=== PATIENT | male | born 1925 | race Hispanic/Latino ===

== ENCOUNTER 2017-01-04 09:20 | Emergency (ER) | payer MEDICARE ==
[2017-01-04 10:23] LABS: Basophils % (Auto) 0.6 % (0.0-1.8); Eosinophils % (Auto) 0.7 % (0.0-4.3); Hematocrit 44.9 % (35.5-45.6); Hemoglobin 14.7 gm/dl (11.8-15.2); Mean Corpuscular HGB Conc 33 % (32-34); Mean Corpuscular Hemoglobin 31 pg (28-32); Mean Corpuscular Volume 94 fl (84-94); Platelet Count 209 K/mm3 (140-440); Red Blood Count 4.78 M/mm3 (3.65-5.03); Red Cell Distribution Width 15.1 % (13.2-15.2); White Blood Count 7.9 K/mm3 (4.5-11.0)
--- NOTE | 2017-01-04 10:26 | Emergency Department Report ---
ED General Adult HPI - General Chief complaint: High BP Stated complaint: BP HIGH Time Seen by Provider: 01/04/17 10:14 Source: patient, RN notes reviewed, old records reviewed Mode of arrival: Ambulatory Limitations: No Limitations - History of Present Illness Initial comments: This is an 89-year-old male. He is previously unknown to me. Past medical history includes hypertension, GERD, A. fib, cardiac disease, hypertension. Primary care Dr.: Dr Katie Mattson Cardiology: DR Valdes the patient presents to the ER with complaint of resolved hypertension. He reports his blood pressure yesterday was 200/114. He denies dietary indiscretions. He denies caffeinated intake. He denies chest pain and shortness of breath. He denies ataxia. He denies headache and neck pain. The patient reports very transient sensation of dizziness, which he described as a sensation of feeling woozy, which initiated when he got up from standing. This lasted for a few seconds, has since resolved, and the patient reports it's always present when he gets up from standing. He has no complaints at this time , reports medication compliance, and denies missing doses of medications. -: Gradual Severity scale (0 -10): 0 Consistency: now resolved Improves with: none Worsens with: none Associated Symptoms: denies: confusion, chest pain, cough, diaphoresis, fever/ chills, headaches, loss of appetite, malaise, nausea/vomiting, rash, shortness of breath, syncope, weakness - Related Data Home Medications Medication Instructions Recorded Confirmed Last Taken Prednisone 5 mg PO QAM 01/04/17 01/04/17 Unknown Prednisone 7.5 mg PO [facility] 01/04/17 01/04/17 Unknown Prednisone 10 mg PO QAM 01/04/17 01/04/17 Unknown Prednisone 15 mg PO QAM 01/04/17 01/04/17 Unknown Warfarin [Coumadin] 7.5 mg PO QWEEK 01/04/17 01/04/17 12/29/16 Previous Rx's Medication Instructions Recorded Last Taken Type Amiodarone [Cordarone 200 MG TAB] 200 mg PO DAILY #30 tablet 11/05/15 Unknown Rx Glimepiride [Amaryl] 2 mg PO DAILY #30 tablet 11/05/15 Unknown Rx ISOSORBIDE MONOnitrate [Imdur ER] 30 mg PO DAILY #30 tablet 11/05/15 Unknown Rx Levothyroxine [Synthroid] 100 mcg PO QAM #30 tablet 11/05/15 Unknown Rx Losartan [Cozaar] 100 mg PO QDAY #30 tablet 11/05/15 Unknown Rx Warfarin [Coumadin] 5 mg PO DAILY@1700 #30 tablet 11/05/15 Unknown Rx Allergies Allergy/AdvReac Type Severity Reaction Status Date / Time Tetanus Vaccines & Toxoid Allergy Hives Verified 01/04/17 09:46 ED Review of Systems ROS: Stated complaint: BP HIGH Other details as noted in HPI Constitutional: denies: malaise Eyes: denies: vision change ENT: denies: epistaxis Respiratory: denies: cough Cardiovascular: denies: chest pain Gastrointestinal: denies: nausea, vomiting Genitourinary: denies: dysuria Musculoskeletal: denies: back pain Skin: denies: lesions Neurological: denies: headache Psychiatric: denies: depression ED Past Medical Hx - Past Medical History Hx Hypertension: Yes Hx Heart Attack/AMI: Yes Hx Congestive Heart Failure: No Hx Diabetes: Yes Hx GERD: Yes Hx Liver Disease: No (cholelithiasis) Additional medical history: Tachyarrhythmia. HIGH CHOLESTEROL. CHOLELIATHIASIS. CAD - Surgical History Hx Coronary Stent: Yes (3 STENTS) Hx Cholecystectomy: Yes Hx Appendectomy: Yes Additional Surgical History: hernia repair - Social History Smoking Status: Never Smoker Substance Use Type: None - Medications Home Medications: Home Medications Medication Instructions Recorded Confirmed Last Taken Type Amiodarone [Cordarone 200 MG TAB] 200 mg PO DAILY #30 tablet 11/05/15 01/04/17 Unknown Rx Glimepiride [Amaryl] 2 mg PO DAILY #30 tablet 11/05/15 01/04/17 Unknown Rx ISOSORBIDE MONOnitrate [Imdur ER] 30 mg PO DAILY #30 tablet 11/05/15 01/04/17 Unknown Rx Levothyroxine [Synthroid] 100 mcg PO QAM #30 tablet 11/05/15 01/04/17 Unknown Rx Losartan [Cozaar] 100 mg PO QDAY #30 tablet 11/05/15 01/04/17 Unknown Rx Warfarin [Coumadin] 5 mg PO DAILY@1700 #30 tablet 11/05/15 01/04/17 Unknown Rx Prednisone 5 mg PO QAM 01/04/17 01/04/17 Unknown History Prednisone 7.5 mg PO QAM 01/04/17 01/04/17 Unknown History Prednisone 10 mg PO QAM 01/04/17 01/04/17 Unknown History Prednisone 15 mg PO QAM 01/04/17 01/04/17 Unknown History Warfarin [Coumadin] 7.5 mg PO QWEEK 01/04/17 01/04/17 12/29/16 History ED Physical Exam - General Limitations: No Limitations General appearance: alert, in no apparent distress - Head Head exam: Present: atraumatic, normocephalic - Eye Eye exam: Present: normal appearance, EOMI. Absent: nystagmus - ENT ENT exam: Present: normal exam, normal orophraynx, mucous membranes moist, normal external ear exam - Neck Neck exam: Present: normal inspection, full ROM. Absent: tenderness, meningismus - Respiratory Respiratory exam: Present: normal lung sounds bilaterally. Absent: respiratory distress, wheezes, rales, rhonchi, stridor, chest wall tenderness, accessory muscle use, decreased breath sounds - Cardiovascular Cardiovascular Exam: Present: regular rate, normal rhythm, normal heart sounds. Absent: bradycardia, tachycardia, irregular rhythm, systolic murmur, diastolic murmur, rubs, gallop - GI/Abdominal GI/Abdominal exam: Present: soft, normal bowel sounds. Absent: distended, tenderness, guarding, rebound, rigid, pulsatile mass - Rectal Rectal exam: Present: deferred - Extremities Exam Extremities exam: Present: normal inspection, full ROM, normal capillary refill , pedal edema (1+ edema, chronic). Absent: tenderness, calf tenderness - Back Exam Back exam: Present: normal inspection, full ROM. Absent: tenderness, CVA tenderness (R), CVA tenderness (L), muscle spasm, paraspinal tenderness, vertebral tenderness - Neurological Exam Neurological exam: Present: alert, oriented X3, normal gait (no past pointing. Normal [id number]. Negative pronator drift. He walks with a steady gait.), other (Extraocular movements intact. Tongue midline. No facial droop. Facial sensation intact to light touch in the V1, V2, V3 distribution bilaterally. 5 and 5 strength in 4 extremities.. Sensation is intact to light touch in 4 extremities.). Absent: motor sensory deficit - Psychiatric Psychiatric exam: Present: normal affect, normal mood - Skin Skin exam: Present: warm, dry, intact, normal color. Absent: rash ED Course Vital Signs 01/04/17 01/04/17 01/04/17 09:35 10:10 13:16 Temperature 98.0 F 97.7 F 97.6 F Pulse Rate 85 77 77 Respiratory 17 16 16 Rate Blood Pressure 158/106 Blood Pressure 152/94 162/95 [Left] O2 Sat by Pulse 95 100 100 Oximetry - Reevaluation(s) Reevaluation #1: 01/04/17 12:15 Differential diagnosis: Hypertension, anxiety, Gen. medical evaluation, intracranial hemorrhage Assessment and plan: 89-year-old male with a complaint of painless hypertension , which has essentially resolved. He also endorses very transient dizziness, which has since resolved. He has no pulmonary embolus or DVT risk factors, he is low risk by well's criteria, his INR is therapeutic. He has a GCS of 15, with an NIH score of 0, and walks with a steady gait. I think intracranial injury is very unlikely, but given his extremely advanced age, I will obtain a noncontrast CT scan of the brain to exclude intracranial hemorrhage. He has no chest pain or shortness of breath, and his EKG demonstrates a chronically known right bundle branch block. Assuming normal CT scan of the brain, patient will be discharged with instructions to follow up with his outpatient director of sales later on this week for his INR checked. He reports that he is going to follow up with his director of sales later on this week for an INR check Reevaluation #2: 01/04/17 13:22 CT scan negative. Patient resting comfortably. Repeat neurologic examination unremarkable. Blood pressure within acceptable parameters. Patient to be discharged. ED Medical Decision Making - Lab Data Result diagrams: 01/04/17 09:56 01/04/17 09:56 Vital Signs 01/04/17 01/04/17 09:35 10:10 Temperature 98.0 F 97.7 F Pulse Rate 85 77 Respiratory 17 16 Rate Blood Pressure 158/106 Blood Pressure 152/94 [Left] O2 Sat by Pulse 95 100 Oximetry Lab Results 01/04/17 01/04/17 01/04/17 Range/Units 09:56 09:56 09:56 WBC 7.9 (4.5-11.0) K/mm3 RBC 4.78 (3.65-5.03) M/mm3 Hgb 14.7 (11.8-15.2) gm/dl Hct 44.9 (35.5-45.6) % MCV 94 (84-94) fl MCH 31 (28-32) pg MCHC 33 (32-34) % RDW 15.1 (13.2-15.2) % Plt Count 209 (140-440) K/mm3 Lymph % (Auto) 19.6 (13.4-35.0) % [place] % (Auto) 8.5 H (0.0-7.3) % Eos % (Auto) 0.7 (0.0-4.3) % Baso % (Auto) 0.6 (0.0-1.8) % Lymph # 1.6 (1.2-5.4) K/mm3 [place] # 0.7 (0.0-0.8) K/mm3 Eos # 0.1 (0.0-0.4) K/mm3 Baso # 0.0 (0.0-0.1) K/mm3 Seg Neutrophils % 70.6 H (40.0-70.0) % Seg Neutrophils # 5.6 (1.8-7.7) K/mm3 PT 25.3 H (12.2-14.9) Sec. INR 2.29 H (0.87-1.13) APTT 30.1 (24.2-36.6) Sec. Sodium 138 (137-145) mmol/L Potassium 4.2 (3.6-5.0) mmol/L Chloride 101.9 (98-107) mmol/L Carbon Dioxide 23 (22-30) mmol/L Anion Gap 17 mmol/L BUN 18 (9-20) mg/dL Creatinine 1.4 (0.8-1.5) mg/dL Estimated GFR 48 ml/min BUN/Creatinine Ratio 12.85 % Glucose 199 H (75-100) mg/dL Calcium 9.6 (8.4-10.2) mg/dL Troponin T (0.00-0.029) ng/mL - EKG Data -: EKG Interpreted by Hi EKG shows normal: sinus rhythm Rate: normal - EKG Data Interpretation: unchanged when compared t 01/04/17 12:17 normal sinus, 83 beats per minute, QTC 509 ms, normal axis, right bundle branch block, not consistent with STEMI, right bundle branch block is old when compared to prior EKG. - Radiology Data Radiology results: report reviewed, image reviewed Noncontrast CT scan of the brain demonstrates no acute disease or pathology Critical care attestation.: If time is entered above; I have spent that time in minutes in the direct care of this critically ill patient, excluding procedure time. ED Disposition Clinical Impression: HTN (hypertension) Disposition: DISCHARGED TO HOME OR SELFCARE Is pt being admited?: No Does the pt Need Aspirin: No Condition: Stable Instructions: Hypertension (ED) Additional Instructions: Continue current outpatient medications. Follow up with her primary care doctor or director of sales within the next week for an INR check. Please return to the ER right away with new pain, worsened pain, migration of pain, fevers or chills, intractable nausea or vomiting, inability to tolerate liquid feeds, sudden severe thunderclap headache, inability to walk. Referrals: YULIANA MATTSON MD [Primary Care Provider] - 3-5 Days ANGEL VALDES MD [Staff Physician] - 3-5 Days
[2017-01-04 10:34] LABS: INR 2.29 (0.87-1.13); Partial Thromboplastin Time 30.1 Sec. (24.2-36.6)
[2017-01-04 10:36] LABS: BUN/Creatinine Ratio 12.85; Calcium 9.6 mg/dL (8.4-10.2); Chloride 101.9 mmol/L (98-107); Potassium 4.2 mmol/L (3.6-5.0)
--- NOTE | 2017-01-04 12:52 | Cat Scan Report ---
CT HEAD WITHOUT CONTRAST: 01/04/17 09:20:00 CLINICAL: Dizziness. On Coumadin. TECHNIQUE: 2.5-mm noncontrast scans. COMPARISON:None FINDINGS: The ventricles and sulci are normal for age. No abnormal density. No mass or mass effect. No hemorrhage, edema or extra-axial collection. Bilateral benign basal ganglia calcifications. The sinuses are clear. Normal orbits and soft tissues. The calvarium and skull base are intact. IMPRESSION: Negative study. No evidence of acute infarct or hemorrhage.
[2017-01-04 13:30] VITALS: BP 162/95
== END 2017-01-04 13:16 | disposition home or self-care (01) ==
LOC: ED 09:20
DX: I10 Essential (primary) hypertension (principal); E11.9 Type 2 diabetes mellitus without complications; K21.9 Gastro-esophageal reflux disease without esophagitis; I25.2 Old myocardial infarction; E78.00 Pure hypercholesterolemia, unspecified; I25.10 Atherosclerotic heart disease of native coronary artery without angina pectoris; I48.91 Unspecified atrial fibrillation; Z90.49 Acquired absence of other specified parts of digestive tract; Z95.818 Presence of other cardiac implants and grafts; Z79.899 Other long term (current) drug therapy; Z88.7 Allergy status to serum and vaccine
CPT/HCPCS: 36415; 70450; 80048; 84484; 85025; 85610; 85730; 93005; 93010; 99284

== ENCOUNTER 2017-04-08 10:41 | Emergency (ER) | payer MEDICARE ==
[2017-04-08 11:04] VITALS: BP 136/80
--- NOTE | 2017-04-08 12:01 | XRay Report ---
Right forearm 2 views. Findings: There is no evidence of fracture or dislocation. Arthritic changes are seen at the wrist joint. Impression: No acute findings.
--- NOTE | 2017-04-08 13:00 | Emergency Department Report ---
- General Chief Complaint: Wound/Laceration Stated Complaint: RT ARM LACERATION Time Seen by Provider: 04/08/17 12:24 Source: patient Mode of arrival: Ambulatory Limitations: No Limitations - History of Present Illness Initial Comments: Patient comes into the ER today with complaints of a laceration to his right forearm. Patient states earlier today he was working on the radiator of his vehicle when the fluid level device that he was using shot up and hit his right forearm. Patient states that he put a rag over his forearm and came right here. Patient does state that he is allergic to tetanus and does not want a tetanus shot. - Related Data Home Medications Medication Instructions Recorded Confirmed Last Taken Prednisone 5 mg PO QAM 01/04/17 01/04/17 Unknown Prednisone 7.5 mg PO QAM 01/04/17 01/04/17 Unknown Prednisone 10 mg PO QAM 01/04/17 01/04/17 Unknown Prednisone 15 mg PO QAM 01/04/17 01/04/17 Unknown Warfarin [Coumadin] 7.5 mg PO QWEEK 01/04/17 01/04/17 12/29/16 Previous Rx's Medication Instructions Recorded Last Taken Type Amiodarone [Cordarone 200 MG TAB] 200 mg PO DAILY #30 tablet 11/05/15 Unknown Rx Glimepiride [Amaryl] 2 mg PO DAILY #30 tablet 11/05/15 Unknown Rx ISOSORBIDE MONOnitrate [Imdur ER] 30 mg PO DAILY #30 tablet 11/05/15 Unknown Rx Levothyroxine [Synthroid] 100 mcg PO QAM #30 tablet 11/05/15 Unknown Rx Losartan [Cozaar] 100 mg PO QDAY #30 tablet 11/05/15 Unknown Rx Warfarin [Coumadin] 5 mg PO DAILY@1700 #30 tablet 11/05/15 Unknown Rx Cephalexin [Keflex] 500 mg PO TID #30 capsule 04/08/17 Unknown Rx Allergies Allergy/AdvReac Type Severity Reaction Status Date / Time Tetanus Vaccines & Toxoid Allergy Hives Verified 01/04/17 09:46 ED Review of Systems ROS: Stated complaint: RT ARM LACERATION Other details as noted in HPI Constitutional: denies: chills, fever Eyes: denies: eye pain, eye discharge, vision change ENT: denies: ear pain, throat pain Respiratory: denies: cough, shortness of breath, wheezing Cardiovascular: denies: chest pain, palpitations Endocrine: no symptoms reported Gastrointestinal: denies: abdominal pain, nausea, diarrhea Genitourinary: denies: urgency, dysuria Musculoskeletal: denies: back pain, joint swelling, arthralgia Skin: denies: rash, lesions Neurological: denies: headache, weakness, paresthesias Psychiatric: denies: anxiety, depression Hematological/Lymphatic: denies: easy bleeding, easy bruising ED Past Medical Hx - Past Medical History Hx Hypertension: Yes Hx Heart Attack/AMI: Yes Hx Congestive Heart Failure: No Hx Diabetes: Yes Hx GERD: Yes Hx Liver Disease: No (cholelithiasis) Additional medical history: Tachyarrhythmia. HIGH CHOLESTEROL. CHOLELIATHIASIS. CAD - Surgical History Hx Coronary Stent: Yes (3 STENTS) Hx Cholecystectomy: Yes Hx Appendectomy: Yes Additional Surgical History: hernia repair - Social History Smoking Status: Never Smoker Substance Use Type: None - Medications Home Medications: Home Medications Medication Instructions Recorded Confirmed Last Taken Type Amiodarone [Cordarone 200 MG TAB] 200 mg PO DAILY #30 tablet 11/05/15 01/04/17 Unknown Rx Glimepiride [Amaryl] 2 mg PO DAILY #30 tablet 11/05/15 01/04/17 Unknown Rx ISOSORBIDE MONOnitrate [Imdur ER] 30 mg PO DAILY #30 tablet 11/05/15 01/04/17 Unknown Rx Levothyroxine [Synthroid] 100 mcg PO QAM #30 tablet 11/05/15 01/04/17 Unknown Rx Losartan [Cozaar] 100 mg PO QDAY #30 tablet 11/05/15 01/04/17 Unknown Rx Warfarin [Coumadin] 5 mg PO DAILY@1700 #30 tablet 11/05/15 01/04/17 Unknown Rx Prednisone 5 mg PO QAM 01/04/17 01/04/17 Unknown History Prednisone 7.5 mg PO QAM 01/04/17 01/04/17 Unknown History Prednisone 10 mg PO QAM 01/04/17 01/04/17 Unknown History Prednisone 15 mg PO QAM 01/04/17 01/04/17 Unknown History Warfarin [Coumadin] 7.5 mg PO QWEEK 01/04/17 01/04/17 12/29/16 History Cephalexin [Keflex] 500 mg PO TID #30 capsule 04/08/17 Unknown Rx ED Physical Exam - General Limitations: No Limitations General appearance: alert, in no apparent distress - Head Head exam: Present: atraumatic, normocephalic - Eye Eye exam: Present: normal appearance - ENT ENT exam: Present: mucous membranes moist - Neck Neck exam: Present: normal inspection - Respiratory Respiratory exam: Present: normal lung sounds bilaterally. Absent: respiratory distress - Cardiovascular Cardiovascular Exam: Present: regular rate, normal rhythm. Absent: systolic murmur, diastolic murmur, rubs, gallop - GI/Abdominal GI/Abdominal exam: Present: soft, normal bowel sounds - Rectal Rectal exam: Present: deferred - Extremities Exam Extremities exam: Present: normal inspection, full ROM, normal capillary refill , other (4 cm superficial skin flap laceration noted to right anterior forearm. No active bleeding on initial examination.) - Back Exam Back exam: Present: normal inspection - Neurological Exam Neurological exam: Present: alert, oriented X3 - Psychiatric Psychiatric exam: Present: normal affect, normal mood - Skin Skin exam: Present: warm, dry, intact, normal color. Absent: rash ED Course Vital Signs 04/08/17 11:01 Temperature 98.6 F Pulse Rate 80 Respiratory 16 Rate Blood Pressure 136/80 O2 Sat by Pulse 100 Oximetry - Laceration /Wound Repair Right Anterior Medial Arm Wound Location: upper extremity (right anterior mid-forearm) Wound Length (cm): 4 Wound's Depth, Shape: flap Wound Explored: clean Irrigated w/ Saline (ccs): 30 Betadine Prep?: No Wound Repaired With: Steri-strips Layer Closure?: No Sterile Dressing Applied?: Yes Progress: Laceration closure achieved with Steri-Strips. Good approximation to the wound margins. Patient tolerated procedure very well without any complications. ED Medical Decision Making - Lab Data Lab Results 04/08/17 Range/Units 10:54 POC Glucose 195 H (70-105) - Radiology Data Radiology results: report reviewed Normal right forearm x-ray - Medical Decision Making Patient tolerated wound repair without any complications. Patient is to follow- up with his primary care doctor to ensure resolution of of injury. I have instructed patient and on proper care of wound. Patient is in agreement with treatment plan and patient is stable for discharge. Critical care attestation.: If time is entered above; I have spent that time in minutes in the direct care of this critically ill patient, excluding procedure time. ED Disposition Clinical Impression: Laceration of right forearm Disposition: DC-01 TO HOME OR SELFCARE Is pt being admited?: No Does the pt Need Aspirin: No Condition: Good Instructions: Laceration (ED) Prescriptions: Cephalexin [Keflex] 500 mg PO TID #30 capsule Referrals: DAVID HOLLINGSWORTH JR, MD [Primary Care Provider] - 3-5 Days Time of Disposition: 13:05
== END 2017-04-08 13:13 | disposition home or self-care (01) ==
LOC: ED 10:41
DX: S51.811A Laceration without foreign body of right forearm, initial encounter (principal); I10 Essential (primary) hypertension; I25.2 Old myocardial infarction; E11.9 Type 2 diabetes mellitus without complications; K21.9 Gastro-esophageal reflux disease without esophagitis; E78.00 Pure hypercholesterolemia, unspecified; Z88.8 Allergy status to other drugs, medicaments and biological substances; Z79.01 Long term (current) use of anticoagulants; W31.89XA Contact with other specified machinery, initial encounter; Y93.89 Activity, other specified; Y99.8 Other external cause status; Y92.89 Other specified places as the place of occurrence of the external cause
CPT/HCPCS: 82962